=== PATIENT | female | born 1945 | race Caucasian/White ===

== ENCOUNTER 2019-10-17 11:45 | Observation (INO) ==
[~2019-10-17 11:45] MED LIST: Celecoxib 200 MG CAPSULE PO ONE; Famotidine 20 MG/2 ML VIAL IVP ONE; Gabapentin 100 MG CAPSULE PO ONE
[2019-10-17] MEDS ORDERED: CeFAZolin Syr 2,000MG/20 ML 2,000 MG/20 ML SYRINGE IVPB ONE (11:59)
[2019-10-17] MEDS ORDERED: Ringers Solution, Lactated 1,000 ML IVC SCH (12:00)
[2019-10-17] MEDS ORDERED: *HR* Midazolam HCl 2 MG/2 ML VIAL ONE (14:03)
[2019-10-17] MEDS ORDERED: Lidocaine -MPF 2% 2 ML VIAL ONE (14:07)
[2019-10-17] MEDS ORDERED: *HR* Rocuronium Bromide 50 MG/5 ML VIAL ONE (14:07)
[2019-10-17] MEDS ORDERED: Lidocaine HCL 4 ML Topical Solution (Laryng-O-Jet Kit Sterile Pak) TP ONE (14:07)
[2019-10-17] MEDS ORDERED: *HR* Propofol 200 MG/20 ML VIAL IVP ONE (14:08)
[2019-10-17] MEDS ORDERED: *HR* FentaNYL (PF) 100 MCG/2 ML VIAL ONE (14:08)
[2019-10-17] MEDS ORDERED: Dexamethasone 4 MG/ML VIAL ONE (14:10)
[2019-10-17] MEDS ORDERED: Ondansetron 4 MG/2 ML VIAL ONE ×2 (14:10→19:11)
[2019-10-17] MEDS ORDERED: EPHEDrine 50 MG/ML VIAL ONE (14:25)
[2019-10-17] MEDS ORDERED: Ketorolac 30 MG/ML VIAL ONE (15:54)
[2019-10-17] MEDS ORDERED: *HR* HYDROMORPHONE 2 MG/ML VIAL ONE (15:54)
[2019-10-17] MEDS ORDERED: Ondansetron 4 MG/2 ML VIAL IVP ONE (19:53)
[2019-10-17] MEDS ORDERED: Ondansetron 4 MG/2 ML VIAL IVP PRN (22:07)
[2019-10-18 07:29] VITALS: BP 131/65
== END 2019-10-18 10:55 | disposition home or self-care (01) ==
LOC: SAMDAY 11:45 → 2ANU 11:45
PROVIDERS: ADMIT Surgery; ATTEND Surgery